=== PATIENT | female | born 1955 | race Caucasian/White ===

== ENCOUNTER 2017-04-17 22:05 | Emergency (ER) | payer OTHER ==
[2017-04-17 22:10] VITALS: BP 135/78
--- NOTE | 2017-04-17 22:23 | PHYS DOC ---
Adult General Chief Complaint Chief Complaint: LACERATION/AVULSION HPI HPI 61-year-old female who has a laceration to her right middle finger after trying to open a can approximately 30 minutes prior to arrival. 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 Bleeding is controlled with pressure dressing. She denies any numbness/tingling in the affected finger. She denies any other injury. She does not remember when her last tetanus injection was. Review of Systems Review of Systems Constitutional: Denies fever or chills [] Eyes: Denies change in visual acuity, redness, or eye pain [] HENT: Denies nasal congestion or sore throat [] Respiratory: Denies cough or shortness of breath [] Cardiovascular: No additional information not addressed in HPI [] GI: Denies abdominal pain, nausea, vomiting, bloody stools or diarrhea [] : Denies dysuria or hematuria [] Musculoskeletal: Denies back pain or joint pain [] Integument: Denies rash or skin lesions [] Neurologic: Denies headache, focal weakness or sensory changes [] Endocrine: Denies polyuria or polydipsia [] Current Medications Current Medications Current Medications Medications (Trade) Dose Ordered Sig/Abdulkadir Start Time Stop Time Status Last Admin Dose Admin Diphtheria/ Tetanus/Acell Pertussis (Boostrix) 0.5 ml ONCE ONCE 04/17/17 22:45 04/17/17 22:46 DC 04/17/17 22:50 0.5 ML Lidocaine/ Epinephrine (Xylocaine 1%-Epi 1:100,000) 20 ml STK-MED ONCE 04/17/17 22:39 04/17/17 22:40 DC Allergies Allergies Allergies Coded Allergies Type Severity Reaction Last Updated Verified ciprofloxacin Allergy Unknown 04/17/17 Yes hydromorphone Allergy Unknown 04/17/17 Yes levofloxacin Allergy Unknown 04/17/17 Yes morphine Adverse Reaction Unknown 04/17/17 Yes tramadol Adverse Reaction Unknown 04/17/17 Yes Physical Exam Physical Exam Constitutional: Well developed, well nourished, no acute distress, non-toxic appearance. [] HENT: Normocephalic, atraumatic, bilateral external ears normal, oropharynx moist, no oral exudates, nose normal. [] Eyes: PERRLA, EOMI, conjunctiva normal, no discharge. [] Neck: Normal range of motion, no tenderness, supple, no stridor. [] Cardiovascular:Heart rate regular rhythm, no murmur [] Lungs & Thorax: Bilateral breath sounds clear to auscultation [] Abdomen: Bowel sounds normal, soft, no tenderness, no masses, no pulsatile masses. [] Skin: Warm, dry, no erythema, no rash. [] Back: No tenderness, no CVA tenderness. [] Extremities: No tenderness, no cyanosis, no clubbing, ROM intact, no edema. [] Neurologic: Alert and oriented X 3, normal motor function, normal sensory function, no focal deficits noted. [] Psychologic: Affect normal, judgement normal, mood normal. [] Current Patient Data Vital Signs Vital Signs Date Time Temp Pulse Resp B/P (MAP) Pulse Ox O2 Delivery O2 Flow Rate FiO2 04/17/17 22:10 98.1 96 18 96 Room Air 98.1 EKG EKG [] Radiology/Procedures Radiology/Procedures [] Course & Med Decision Making Course & Med Decision Making Pertinent Labs and Imaging studies reviewed. (See chart for details) This 61 yo female presents with a laceration to the right middle finger with controlled bleeding. The wound will be irrigated and sutured. She is also complaining of dysuria type symptoms and will be placed on Keflex to cover for any chance of wound infection as well as her UTI symptoms. Urinalysis is pending at this time but the patient will be treated with Keflex for her dysuria type symptoms as well as her wound. Wound is fully irrigated and explored and closed with 4 6-0 nylon sutures with excellent approximation of tissue. Return precautions were provided and acknowledged by the patient. Her urine will be sent for culture. Dragon Disclaimer Dragon Disclaimer This electronic medical record was generated, in whole or in part, using a voice recognition dictation system. Laceration Repair Lac Repair Indication: Finger laceration Procedure: The patient was placed in the appropriate position and anesthesia around the laceration. The area was then cleansed with normal saline. The laceration was 2 cm in length. The wound area was then dressed with a bandage. Total repaired wound length: 2 cm. Other Items: None The patient tolerated the procedure well. Complications: None. Departure Departure Impression: Primary Impression: Urinary tract infection Additional Impression: Finger laceration Disposition: 01 HOME, SELF-CARE Admitting Physician: Other Condition: STABLE Patient Instructions: Laceration Care, Adult, [id number], Urinary Tract Infection, [id number] Additional Instructions: Please take your antibiotic as prescribed and keep your wound clean and dry. Have your sutures removed in 7-10 days. Return to the ER if you develop any worsening of your symptoms. Scripts Cephalexin (KEFLEX) 500 Mg Capsule 1 CAP PO BID, #14 CAP Prov: CAYLA BRADSHAW DO 04/17/17 Problem Qualifiers CAYLA BRADSHAW DO Apr 17, 2017 22:23
[2017-04-17] MEDS ORDERED: LIDOCAINE 1%/EPI 1:100,000 20 ML VIAL. ONE (22:39)
[2017-04-17] MEDS ORDERED: DIPHTH,PERTUSS(ACELL),TET TOX 0.5 ML DISP.SYRIN. VAX IM ONE (22:45)
[2017-04-17 23:08] LABS: BILIRUBIN,URINE NEGATIVE (NEG); GLUCOSE,URINE NEGATIVE (NEG); NITRITE,URINE POSITIVE (NEG); PH,URINE 5.5; PROTEIN,URINE NEGATIVE (NEG-TRACE); UROBILINOGEN,URINE 0.2 mg/dL (0.2 mg/dL)
[2017-04-17] MEDS ORDERED: CEPH-264 PO (23:14)
[2017-04-17 23:30] LABS: BACTERIA,URINE MANY /HPF (0-FEW); SQUAMOUS EPITHELIAL CELL,UR OCC /LPF; WBC,URINE >40 /HPF (0-4)
== END 2017-04-17 23:20 | disposition home or self-care (01) ==
LOC: ER 22:05
DX: S61.212A Laceration without foreign body of right middle finger without damage to nail, initial encounter (principal); N39.0 Urinary tract infection, site not specified; Z86.711 Personal history of pulmonary embolism; Z86.718 Personal history of other venous thrombosis and embolism; Z85.72 Personal history of non-Hodgkin lymphomas; Z79.01 Long term (current) use of anticoagulants; Z88.1 Allergy status to other antibiotic agents; Z88.5 Allergy status to narcotic agent; W26.8XXA Contact with other sharp object(s), not elsewhere classified, initial encounter; Y93.89 Activity, other specified; Y92.89 Other specified places as the place of occurrence of the external cause; Y99.8 Other external cause status
CPT/HCPCS: 12001; 81001; 87086; 87186; 90471; 90715; 99284-25

== ENCOUNTER → 2018-04-02 | Outpatient (CLI) | payer OTHER ==
[~2018-04-02] MED LIST: CONTRAST GIVEN MC
[2018-04-02] MEDS: GADOBUTROL 7.5 MMOL/7.5 ML VIAL INT ART (12:35)
[2018-04-02] MEDS: LIDOCAINE 1% Multi-Dose 20 ML VIAL. ID (12:35)
[2018-04-02] MEDS: IOHEXOL 300 MG/ML 50 ML VIAL. INT ART (12:35)
== END | disposition home or self-care (01) ==
LOC: KCIC 10:09
DX: S46.011A Strain of muscle(s) and tendon(s) of the rotator cuff of right shoulder, initial encounter (principal); S43.082A Other subluxation of left shoulder joint, initial encounter; G89.29 Other chronic pain; X58.XXXA Exposure to other specified factors, initial encounter; Y93.89 Activity, other specified; Y92.89 Other specified places as the place of occurrence of the external cause; Y99.8 Other external cause status
CPT/HCPCS: 73040; 73222; A9585; Q9967

== ENCOUNTER → 2019-01-03 | Outpatient (CLI) | payer OTHER ==
[2018-10-20 15:00] VITALS: BP 125/55
[~2019-01-03] MED LIST changes: +APIX2.5T PO; +BENZ-8 PO; +CART1TAB5 PO; +CEFP200T PO; +CELE200C PO; +CEPH-264 PO; -CONTRAST GIVEN MC; +CRESTOR20 MG PO; +CYCL1DRO EACHEYE; +ESCITALOPRAM OX20 MG PO; +FEMARA2.5 MG PO; +GUAI-108 PO; +INSU100C4 SQ; +INSU100I30 SQ; +ISOS30TA4 PO; +LACT1CAP8 PO; +LIRA0.6P2 SQ; +LISI-334 PO; +METF10007 PO; +MULT1TAB52 PO; +PREG200C PO; +PROPANOLOL PO; +VALA500T PO; +calcium
--- NOTE | 2019-01-03 15:29 | RAD ---
CT the chest without IV contrast for pulmonary infiltrates, follow-up, compared to similar study dated October 17, 2018. TECHNIQUE: Contiguous helical 5 mm axial images are obtained from the thoracic inlet to the base of the diaphragm. Sagittal and coronal reformations are evaluated. FINDINGS: LUNGS: The previously seen infiltrates are essentially resolved. There is a small 1 cm nodular airspace focus within the right lower lung posteriorly which was not present on the prior exam and likely represents a small benign pneumonic infiltrate. No new lung nodules or masses. Mediastinum: Previously described mediastinal lymph nodes are stable in size and appearance, with no suspicious features. Extensive coronary artery disease in multiple distributions. Central airways are patent. Esophagus is unremarkable. Liver: Multiple hepatic hypodensities are seen once again and are stable, and most likely represent simple cysts. These are seen to slightly worse advantage today in the absence of IV contrast. Spleen: Central splenic hypodensity is redemonstrated and measures 1.8 cm transversely which is grossly stable. Benign and malignant etiologies should be considered. Further evaluation with MRI with and without gadolinium, or three-phase CT scan of the abdomen could be of benefit. Adrenals: Previously described equivocal right adrenal nodule is stable. Vascular: There are bulky calcified atherosclerotic plaques involving the origins of the superior mesenteric artery as well as both renal arteries. If there is clinical concern for vascular insufficiency, further evaluation with CTA of the abdomen or mesenteric or renal duplex ultrasound study should be considered. Soft tissues: Bulky coarse heterogeneous calcified densities throughout both breasts are redemonstrated and unchanged, and could reflect multiple hamartomas, or dystrophic calcifications from prior surgery, breast trauma, or injections. Bones: No suspicious osseous abnormalities. Other: No new abnormalities of the visualized upper abdominal organs are identified. IMPRESSION: 1. Resolved left lung infiltrate. There is 1 cm airspace opacity in the right lung which is new today, and likely represents a small benign infiltrate. 2. Extensive multifocal coronary artery disease. There are also bulky atherosclerotic calcifications involving the superior mesenteric and bilateral renal arteries. If there is clinical concern for abdominal vascular insufficiency, further evaluation with CTA or mesenteric or renal arterial duplex ultrasound study could be of benefit. 3. Persistent stable 1.8 cm central splenic lesion. Benign and malignant etiologies should be considered. Further evaluation with MRI with and without gadolinium or three-phase CT scan of the abdomen could be of benefit. 4. Multiple stable liver cysts. 5. Stable mediastinal adenopathy with no suspicious features. 6. Stable indeterminate right adrenal nodule. 7. Stable coarse large bilateral breast calcifications, etiology unclear, but likely benign. PQRS Compliance Statement: One or more of the following individualized dose reduction techniques were utilized for this examination: 1. Automated exposure control 2. Adjustment of the mA and/or kV according to patient size 3. Use of iterative reconstruction technique Electronically signed by: Jose Carty MD (01/03/2019 3:26 PM) [id number]
== END | disposition home or self-care (01) ==
LOC: CT 10:07
PROVIDERS: ATTEND Internal Medicine Pulmonary Disease
DX: I25.10 Atherosclerotic heart disease of native coronary artery without angina pectoris (principal); K76.89 Other specified diseases of liver; I70.1 Atherosclerosis of renal artery; R91.8 Other nonspecific abnormal finding of lung field; R59.0 Localized enlarged lymph nodes
CPT/HCPCS: 71250